=== PATIENT | female | born 1970 | race Caucasian/White ===

== ENCOUNTER 2018-07-22 08:31 | Day surgery (SDC) | payer BC, SELFPAY ==
[2018-07-22] VITALS (9 sets, daily range): BP systolic 102–140; BP diastolic 56–97; PULSE 57–81; RESP 12–16; TEMP 35.5–36.3; O2SAT 97–100
--- NOTE | 2018-07-22 06:49 | W.PM.OP ---
Date of service: 07/22/18 Operative Note DATE OF PROCEDURE: 07/22/18 PRE-OP DIAGNOSIS: Incisional hernia POST-OP DIAGNOSIS: same PROCEDURE: Laparoscopic incisional hernia repair with mesh (51.3 cm mesh) hernia size 12 x 13 cm SURGEON: Rubi Rogers ANESTHESIA: GETA (Clarisse Ryder CRNA) and regional (Bilateral rectus block done by Clarisse Ryder CRNA) ESTIMATED BLOOD LOSS: 25 PATHOLOGY: none sent COMPLICATIONS: None Patient was transported to: PACU Patient's condition: stable Implants: ECHO mesh 15.3 cm Indications: Mrs. Epps is a pleasant 48-year-old female who was seen in the office with an incisional hernia. She states it has probably been there about 6 years. It bothers her and causes her to have pain. She also does not like the way it looks with her clothing on. Risks, benefits and complications of a laparoscopic hernia repair were reviewed with her. She wished to proceed. No guarantees were given or implied. Findings: 12 x 13 hernia defect just to the left of midline. There was some scar tissue from the omentum no bowel within the hernia itself. Procedure Description: After informed consent was obtained the patient was taken to the operating room and placed in a supine position. SCDs were applied and she was sedated and intubated. Her abdomen was then prepped by anesthesia and they performed a bilateral rectus muscle block under anesthesia per my request for postoperative pain control. Once this was done a Ramirez was placed in a standard sterile fashion. Her abdomen was then prepped and draped in a sterile surgical fashion. A timeout was done and the patient's name, date of , procedure type and site, allergies to medications, antibiotic given, and DVT prophylaxis were all reviewed. At this 0.2% lidocaine was injected about 2 inches above the umbilicus and a 5 mm incision was made with an 11 blade. The skin was grasped with sharp towel clamps and pulled up at the same time a 5 mm Visiport was attempted to be placed. Her fascia gave way and I did not feel that I should push any more as I could injure something. The port was removed and the incision was made slightly larger the fascia was identified and grasped with [place]'s and using curved Metzenbaum scissors the fast fascia was opened. A 5 mm port was then gently inserted and the abdomen was insufflated. Once the abdomen was insulated a 10 mm port was placed in the left flank area and a 5 mm port was placed in the right flank area. Both were placed under direct visualization. The abdominal wall was inspected and the hernia was identified there was some omentum and scar tissue attached to the hernia this was dissected using a harmonic scalpel. Once all the adhesions were taken down the hernia defect was measured at 12 x 13 cm. A 15.3 echo mesh was opened onto the field. The mesh was placed into the abdomen through the 11 mm port site. A small puncture wound was made in the middle of the hernia defect and a Aiden Villela instrument was placed through that little catheter was graft of the echo mesh pulled through the opening and the balloon was inflated flattening out the mesh nicely. The 11 mm port had to be removed as the mesh was covering it. A new 11 mm port was placed in the LUQ and a 5 mm port was placed in the RLQ to allow for the tacks to be placed circumferential. The mesh was then tacked circumstantially with dissolvable tacks. The balloon was then deflated removed from the mesh and pulled out through the 11 mm port site. The bowel underneath the hernia defect was inspected and no injuries were noted no bleeding was identified from the scar tissue that had been dissected. The mesh was flat against the abdominal wall with good coverage of the hernia defect. All the port sites were removed and the abdomen was deflated. The 11 mm port site was closed with 0 Vicryl UR 6 suture. The dermis was re-approximated with 4-0 vicryl running suture. The skin was cleaned and dried. Mastasol and steri strips were applied. The incisions were covered with 2x2 and tegaderm. The instrument, needle and sponge count was correct x 2. The patient was woken up, extubated and taken back to PACU in stable condition.
--- NOTE | 2018-07-22 06:50 | W.PM.DSUDISC ---
Discharge Plan Disposition Patient Disposition: HOME Condition: Good Discharge Details Reason For Visit: Incisional hernia Attending Provider: Rubi Rogers Primary Care Provider: Nat Jaquez Home Meds and New Rx's Prescriptions: Continue oxycodone 5 mg capsule 5 mg PO ONCE RF: 0 acetaminophen [Tylenol] 325 MG tablet 325 mg PO PRN RF: 0 ibuprofen 200 mg Capsule 400 mg PO PRN PRNRF: 0 Discharge Instructions Instructions: Laparoscopic Herniorrhaphy (DC) Additional Instructions: General Surgery Discharge Information Discharge Activities: 1. Ambulate at least 3 times a day for 15 minutes and as tolerated 2. Out of bed at least 3 times a day for 2 hours at a time, and as tolerated 3. You can shower, pat wounds dry, do not rub Restrictions: 1. No heavy lifting over 20 pounds for 2 weeks, no strenuous bending or twisting. 2. No swimming, baths, or immersion of wounds in water for 1 week. Other 1. May use ice over the incisions for pain and bruising 2. Right shoulder pain and RUQ pain are common after laparoscopic surgery. This should resolve in 24 to 48 hours Medications: 1. Tylenol 650 mg every 6 hours as needed 2. Ibuprofen 600 mg every 6 hours as needed 3. Miralax or Colace daily as needed for constipation 4. Oxycodon 5 mg every 6 hours as needed for severe pain Follow-up appointments: Dr. Rogers in 2 weeks on [] at []. His office is located in the upper level of the [employer] [facility] across the street from the [facility].~ The office number is [phone]. For any questions or to make, confirm appointments. If you are having fever, chills, nausea, vomiting, pain not controlled with pain medications, bleeding or drainage from your wounds. Call [phone] or [phone] (after hours). 1. Because there will be medication in your system for the next 24 hours, you may feel a little sleepy. Your coordination will be affected. Therefore: a. Do not drive or operate dangerous equipment for 24 hours. b. Do not drink alcohol beverages for 24 hours (not even beer). c. Plan to go home and rest for the day. 2. Generally the only restriction on your activity is no lifting, pulling or pushing more then 20 lb for 4 weeks. You may feel fatigued for 2-4 weeks. 3 After you arrive home you may have a light meal and return to a normal diet as you can tolerate it without feeling sick to your stomach. 4. After surgery, you may feel pain or discomfort. Take the medications as prescribed. 5. If there are any questions regarding the findings of your procedure, please feel free to contact your doctor. 6. If you are unable to contact your doctor with a problem, contact the hospital at [phone]. 7. Continue all your regular medications unless directed otherwise. 8. You are being prescribed a Narcotic pain medication. Narcotic pain medications have an addiction potential for everyone. It is important that you take the medication as prescribed There is a limit on how many tablets we can prescribed, this has been decided by the state Please keep the medications in a secure place and do not let anyone know you have them at home If you have medication left over please discard them by crushing them in a little water and mixing in used coffee grounds or cat litter and putting in the trash. I understand the above instructions and have no questions. Signature of Patient or Responsible Adult Escort Date/Time Name of Responsible Adult Escort Signature of Nurse Date/Time I understand the above instructions and have no questions. Signature of Patient or Responsible Adult Escort Date/Time Name of Responsible Adult Escort Sugnature of Nurse Date/Time Activity:: No lifting >20 lb for 2 weeks Diet:: As Tolerated DS: Diagnosis Discharge Diagnosis (1) Incisional hernia of anterior abdominal wall without obstruction or gangrene: Status: Chronic
--- NOTE | 2018-07-22 06:55 | PDOC.DSDIS_ITS ---
Discharge Plan Disposition Patient Disposition: HOME Condition: Good Discharge Details Reason For Visit: Incisional hernia Attending Provider: Rubi Rogers Primary Care Provider: Nat Jaquez Home Meds and New Rx's Prescriptions: Continue oxycodone 5 mg capsule 5 mg PO ONCE RF: 0 acetaminophen [Tylenol] 325 MG tablet 325 mg PO PRN RF: 0 ibuprofen 200 mg Capsule 400 mg PO PRN PRNRF: 0 Discharge Instructions Instructions: Laparoscopic Herniorrhaphy (DC) Additional Instructions: General Surgery Discharge Information Discharge Activities: 1. Ambulate at least 3 times a day for 15 minutes and as tolerated 2. Out of bed at least 3 times a day for 2 hours at a time, and as tolerated 3. You can shower, pat wounds dry, do not rub Restrictions: 1. No heavy lifting over 20 pounds for 2 weeks, no strenuous bending or twisting. 2. No swimming, baths, or immersion of wounds in water for 1 week. Other 1. May use ice over the incisions for pain and bruising 2. Right shoulder pain and RUQ pain are common after laparoscopic surgery. This should resolve in 24 to 48 hours Medications: 1. Tylenol 650 mg every 6 hours as needed 2. Ibuprofen 600 mg every 6 hours as needed 3. Miralax or Colace daily as needed for constipation 4. Oxycodon 5 mg every 6 hours as needed for severe pain Follow-up appointments: Dr. Rogers in 2 weeks on [] at []. His office is located in the upper level of the [employer] Building across the street from the [facility].~ The office number is [phone]. For any questions or to make, confirm appointments. If you are having fever, chills, nausea, vomiting, pain not controlled with pain medications, bleeding or drainage from your wounds. Call [phone] or [phone] (after hours). 1. Because there will be medication in your system for the next 24 hours, you may feel a little sleepy. Your coordination will be affected. Therefore: a. Do not drive or operate dangerous equipment for 24 hours. b. Do not drink alcohol beverages for 24 hours (not even beer). c. Plan to go home and rest for the day. 2. Generally the only restriction on your activity is no lifting, pulling or pushing more then 20 lb for 4 weeks. You may feel fatigued for 2-4 weeks. 3 After you arrive home you may have a light meal and return to a normal diet as you can tolerate it without feeling sick to your stomach. 4. After surgery, you may feel pain or discomfort. Take the medications as prescribed. 5. If there are any questions regarding the findings of your procedure, please feel free to contact your doctor. 6. If you are unable to contact your doctor with a problem, contact the hospital at [phone]. 7. Continue all your regular medications unless directed otherwise. 8. You are being prescribed a Narcotic pain medication. Narcotic pain medications have an addiction potential for everyone. It is important that you take the medication as prescribed There is a limit on how many tablets we can prescribed, this has been decided by the state Please keep the medications in a secure place and do not let anyone know you have them at home If you have medication left over please discard them by crushing them in a little water and mixing in used coffee grounds or cat litter and putting in the trash. I understand the above instructions and have no questions. Signature of Patient or Responsible Adult Escort Date/Time Name of Responsible Adult Escort Signature of Nurse Date/Time I understand the above instructions and have no questions. _ Signature of Patient or Responsible Adult Escort Date/Time _ Name of Responsible Adult Escort _ Sugnature of Nurse Date/Time Activity:: No lifting >20 lb for 2 weeks Diet:: As Tolerated DS: Diagnosis Discharge Diagnosis (1) Incisional hernia of anterior abdominal wall without obstruction or gangrene : Status: Chronic
[2018-07-22] MEDS: Lactated Ringers 1,000 ML 80 ML IV ×2 (09:11→12:15)
[2018-07-22] MEDS: Bupivacaine 0.25% Pres-Free 30 ML VIAL (09:52)
[2018-07-22] MEDS: AMPICILLIN/SULBACTAM 3 GM in Normal Saline 100 ML IVPB (10:01)
[2018-07-22] MEDS: Lidocaine 2% Pres-Free 5 ML VIAL (10:16)
[2018-07-22] MEDS: Normal Saline Flush 10 ML SYR IV (12:10)
[2018-07-22] MEDS: HYDROmorphone 2 MG/ML VIAL IVP ×2 (12:10→12:24)
[2018-07-22] MEDS: oxyCODONE 5 MG TAB PO (13:21)
== END 2018-07-22 14:20 | disposition home or self-care (01) ==
PROVIDERS: PCP Physician Assistant Medical; Visit Provider Surgery
PROC: 0WQF4ZZ Repair Abdominal Wall, Percutaneous Endoscopic Approach (ICD-10-PCS; CPT 49654; principal; 2018-07-22 10:15)
DX: K43.2 Incisional hernia without obstruction or gangrene (principal)
CPT/HCPCS: 49654; 76942; C1781; J0131; J0295; J1100; J1885; J2250; J2405

== ENCOUNTER 2018-07-27 23:18 | Emergency (ER) | payer BC, SELFPAY ==
[2018-07-27] VITALS (10 sets, daily range): BP systolic 110–133; BP diastolic 60–94; PULSE 90–122; RESP 12–31; TEMP 36.6; O2SAT 94–98
--- NOTE | 2018-07-27 00:20 | DI.CT_ITS ---
SYMPTOMS/DIAGNOSIS: ABDOMINAL PAIN, LOWER, 5 DAYS S/P INCISIONAL HERNIA REPAIR ; PAIN AND VOMITING; SYNCOPE CT EXAMINATION OF THE ABDOMEN AND PELVIS: The study was carried out with an intravenous administration of 100 cc of Omnipaque 350. Minimal dependent atelectasis is demonstrated. The liver, and gallbladder, and pancreas and spleen are normal. The adrenals are normal. A 6 mm calculus is noted in the distal left ureter, causing severe hydronephrosis. No bowel abnormality or obstruction is identified. There is nothing to suggest an acute appendix. There is mild wall thickening of the urinary bladder. The reproductive organs as visualized are unremarkable. There is no evidence of free air or free fluid in the intraperitoneal space. No acute bony abnormality is seen. An anterior abdominal wall fluid collection in the subcutaneous fatty tissues measures 3 x 6 cm, midline abdomen along the inferior portion of the mesh. There is no evidence of an aortic aneurysm. The lymph nodes are unremarkable. SUMMARY: A 6 mm stone is impacted in the distal left ureter, causing moderate to severe hydronephrosis. There is bladder wall thickening, which could represent cystitis, and thickening of the ureteral wall on the left could be related to infection or secondary to obstruction. Note is also made of an anterior abdominal wall seroma.
[2018-07-27] MEDS: Lactated Ringers 1,000 ML 1000 ML IV (23:46)
[2018-07-27 23:55] LABS: Abs Immature Grans 0.05 k/cumm (0.0-0.09); Absolute Basophil Count 0.04 k/cumm (0.0-0.2); Absolute Lymphocyte Count 0.57 k/cumm (1.2-3.4); Basophils % 0.2; Eosinophils % 0.2; HCT 43.3 % (36.0-46.0); HGB 14.6 g/dL (12.0-15.5); Immature Grans % 0.3; Lymphocytes % 2.9; Mean Corp. HGB Concentration 33.7 g/dL (32.0-36.0); Mean Corpuscular Hemoglobin 30.4 pg (27.0-33.0); Mean Corpuscular Volume 90.2 fL (80-95); Mean Platelet Volume 9.6 fL (8.0-11.0); Monocytes % 6.6; Neutrophils % 89.8; Platelet Count 286 x1000/uL (130-400); RBC Distribution Width 12.9 % (11.7-14.6); White Blood Cell Count 19.51 k/cumm (4.4-10.8)
[2018-07-27 23:56] LABS: Absolute Eosinophil Count 0.04 k/cumm (0.0-0.7); Absolute Monocyte Count 1.29 k/cumm (0.11-0.7); Absolute Neutrophil Count 17.52 k/cumm (1.2-6.7)
[2018-07-27] MEDS: Ondansetron 4 MG/2 ML VIAL IVP (23:56)
[2018-07-28] VITALS (24 sets, daily range): BP systolic 105–120; BP diastolic 37–58; PULSE 96–110; RESP 11–19; TEMP 36.8; O2SAT 92–99
--- NOTE | 2018-07-28 00:14 | W.ED.GENAD ---
Discharge Plan Discharge Details Chief Complaint: Dizzy/Sync Primary Care Provider: Nat Jaquez ED Provider: Marty Reynoso Home Meds and New Rx's Prescriptions: No Action oxycodone 5 mg capsule 10 mg PO PRN PRNRF: 0 acetaminophen [Tylenol] 325 MG tablet 325 mg PO PRN RF: 0 ibuprofen 200 mg Capsule 400 mg PO PRN PRNRF: 0 Discharge Data Discharge Date/Time-TO BE ENTERED AT DEPARTURE: 07/28/18 03:15 Medical Decision Making 12:00 --48-year-old female here 5 days status post abdominal incisional hernia repair with nausea, vomiting, syncope x2 after vomiting spells, and lower abdominal pain and tenderness today. Plan to CT abdomen and pelvis to assess for acute surgical process. Consider abscess versus mesh failure. Patient appears clinically dehydrated. Plan to give IV fluid bolus. I will give her antiemetic. ECG reviewed and interpreted by me: Sinus rhythm 95 bpm, normal axis, no STEMI, no signs of Brugada, no signs of hocum, no delta wave, nondiagnostic. 1:00 -- Labs reviewed: leukocytosis noted. ddimer elevated. This was sent as screening protocol for syncope. Patient has no SOB. No chest pain. No leg swelling or calf tenderness. No hypoxia or resp distress. I think PE is unlikely and ddimer likely elevated secondary to inflammatory process. That being said, she did have 2 syncopal episodes and has been tachycardic with ambulation. Will CT chest. CT of the abdomen pelvis interpreted by radiology:IMPRESSION: 1. 6 mm stone in the distal left ureter causes moderate to severe hydronephrosis. 2. urinary bladder wall thickening may represent cystitis.. Ureteral urothelial thickening on the left could be infectious or secondary to the obstruction. 3. Anterior abdominal wall seroma. Of note, patient had remote iatrogenic left ureteral injury and has intermittent renal stones on left. Consider septic stone. Awaiting UA. 1:15 -- UA +nitrite and 10-20 WBCs. Concern for septic stone. Will start ceftriaxone 1g IV. 1:25 -- I spoke with Dr. Montes (urology) who notes no availability for procedure today or tomorrow and recommends transfer. I called [facility] to request transfer. CT imaging sent for review. 2:02 -- Spoke with Dr. Boudreaux ([facility] uro) who will accept the patient in transfer. Agrees with ceftriaxone and no additional abx needed. 2:55 --CT of the chest interpreted by radiology: No pulmonary embolism, dependent atelectasis. HPI General Mode of arrival: ambulatory. Date/Time Provider Initiated Documentation: 07/27/18 23:21. Limitations to Documentation: no limitations. Information obtained by: patient. HPI Narrative: 48-year-old female presents 5 days status post laparoscopic incisional hernia repair with mesh, with chief complaint of abdominal discomfort. Patient notes that surgery was performed without complication and she has been doing well over the past few days. This morning she started to have some increasing abdominal pain in her lower abdomen. Pain has persisted and worsened today. Around noon she developed nausea. Nausea is also worsened. She vomited twice this evening. After each episode of vomiting she had a syncopal episode and fell to the ground. The first episode occurred in her bathroom and the second episode occurred outside. She did land on a trash can after the second episode and notes that she may have injured her abdomen. She did hit her face. She denies headache. She has mild pain around her facial abrasions but does not believe she significantly injured her face or head. No neck pain. Patient has never had similar syncopal episode. Abdominal pain is severe. Localized to lower abdomen. Pain feels sharp. No modifiers. No associated fever. Related Data Home Medications Medication Instructions Recorded Confirmed acetaminophen [Tylenol] 325 mg PO PRN 06/20/14 07/27/18 oxycodone 5 mg capsule 10 mg PO PRN PRN 06/14/18 07/27/18 ibuprofen 400 mg PO PRN PRN 07/20/18 07/27/18 Allergies Allergy/AdvReac Type Severity Reaction Status Date / Time meloxicam AdvReac Intermediate diarrhea Verified 07/27/18 23:28 ibuprofen AdvReac Mild Other (See Verified 07/27/18 23:28 Comment) meperidine HCl [From Demerol] AdvReac Mild Nausea Unverified 07/27/18 23:28 General Stated Complaint: Dizzy/Sync JESÚS: 2 Review of Systems Review of Systems All systems reviewed & are unremarkable except as noted in HPI and below Cardiovascular Reports syncope, Denies leg edema and Denies dyspnea Respiratory Denies cough and Denies dyspnea Gastrointestinal Reports nausea and Reports vomiting Neurologic Reports syncope [facility] Family History Mother Myocardial infarction Lung cancer Medical History Carpal tunnel syndrome (Acute) Fibromyalgia (Acute) Gastritis (Acute) Herpes zoster (Acute) Hyperglycemia (Acute) Panic disorder (Acute) Anemia (Chronic) Social History Smoking/Tobacco Use Status: Never alcohol intake: current alcohol intake frequency: a few times a month substance use type: does not use Surgical History section Oophrectomy, Left (~1994) uretal implantation Exam Const General: cooperative and no acute distress HENMT Head: normocephalic, abrasion left temporal (superficial), no Rowland's sign, no hematomas, no palpable skull fracture, no raccoon eyes and No periorbital ecchymosis Mouth: moist mucous membranes Eyes Conjunctivae: normal conjunctivae Sclera: normal sclerae EOM: EOM intact bilaterally Neck Neck: trachea midline and supple Resp Auscultation: clear to auscultation bilaterally, no rales, no rhonchi and no wheezes Cardio Jugular venous pressure: no JVD Rate: regular rate and not tachycardic Rhythm: regular rhythm Heart Sounds: murmur systolic (patient notes told had murmur in past) II/ GI Inspection: abdominal wall ecchymosis (about incision sites), non-distended and no visible herniation Palpation: soft, not firm, no guarding, no masses, not rigid and tender (lower abdomen left>right) Skin General skin exam: no rashes or lesions noted Neuro General: alert, awake, oriented x3 and tone normal Cranial Nerves: CN's II-XI intact bilaterally Cognition: normal cognition Speech: speech normal Motor: muscle tone normal throughout and strength 5/5 throughout Sensory Exam: no sensory deficits noted Extrem General: no edema Psych Appearance: grossly normal Mental Status: mental status grossly normal Speech and Movement: speech and movement normal Course Vital Signs Temperature 36.6 C 07/27/18 23:24 Pulse 97 H 07/27/18 23:24 Respiratory Rate 14 07/27/18 23:24 Blood Pressure 129/62 07/27/18 23:24 Pulse Oximetry 97 07/27/18 23:24 Temperature 36.6 C 07/27/18 23:24 Temperature Source Skin 07/27/18 23:24 Pulse 99 H 07/27/18 23:52 Respiratory Rate 14 07/27/18 23:24 Respiratory Effort 07/27/18 23:36 Respiratory Depth Normal 07/27/18 23:36 Respiratory Pattern Normal 07/27/18 23:36 Blood Pressure 110/60 07/27/18 23:52 Pulse Oximetry 97 07/27/18 23:24 Oxygen Delivery Method Room Air 07/27/18 23:24 Oxygen Flow Rate 0 07/27/18 23:24 Pain Level 10 07/27/18 23:24 Lab/Test Results Lab/Test Results: Laboratory Tests Range/Units 07/27/18 23:30 WBC (4.4-10.8) k/cumm 19.51 H RBC (4.00-5.20) m/cumm 4.80 Hgb (12.0-15.5) g/dL 14.6 Hct (36.0-46.0) % 43.3 MCV (80-95) fL 90.2 MCH (27.0-33.0) pg 30.4 MCHC (32.0-36.0) g/dL 33.7 RDW (11.7-14.6) % 12.9 Plt Count (130-400) x1000/uL 286 MPV (8.0-11.0) fL 9.6 Immature Gran % 0.3 Neutrophils % 89.8 Lymphocytes % 2.9 Monocytes % 6.6 Eosinophils % 0.2 Basophils % 0.2 Absolute Neutrophils (1.2-6.7) k/cumm 17.52 H Absolute Lymphocytes (1.2-3.4) k/cumm 0.57 L Absolute Monocytes (0.11-0.7) k/cumm 1.29 H Absolute Eosinophils (0.0-0.7) k/cumm 0.04 Absolute Basophils (0.0-0.2) k/cumm 0.04
[2018-07-28 00:18] LABS: ALT 24 U/L (12-78); AST 15 U/L (15-37); Albumin 3.7 g/dL (3.4-5.0); Alkaline Phosphatase 94 U/L (46-116); Anion Gap 7.9 mmol/L (3-11); BUN 22 mg/dL (7-18); Bilirubin, Total 0.5 mg/dL (0.2-1.0); CO2 31.1 mmol/L (21.0-32.0); Calcium 9.2 mg/dL (8.5-10.1); Chloride 98 mmol/L (98-107); Estimated GFR 53.24 (mL/min/1.73m2); Glucose 137 mg/dL (70-100); Magnesium 1.7 mg/dL (1.8-2.4); Potassium 4.1 mmol/L (3.5-5.1); Sodium 137 mmol/L (136-145); Total Protein 7.5 g/dL (6.4-8.2)
[2018-07-28 00:27] LABS: D-Dimer 701 ng/mlFEU (<500)
--- NOTE | 2018-07-28 00:28 | ED.GENADUL_ITS ---
Discharge Plan Discharge Details Chief Complaint: Dizzy/Sync Primary Care Provider: Nat Jaquez ED Provider: Marty Reynoso Home Meds and New Rx's Prescriptions: No Action oxycodone 5 mg capsule 10 mg PO PRN PRNRF: 0 acetaminophen [Tylenol] 325 MG tablet 325 mg PO PRN RF: 0 ibuprofen 200 mg Capsule 400 mg PO PRN PRNRF: 0 Discharge Data Discharge Date/Time-TO BE ENTERED AT DEPARTURE: 07/28/18 03:15 Medical Decision Making 12:00 --48-year-old female here 5 days status post abdominal incisional hernia repair with nausea, vomiting, syncope x2 after vomiting spells, and lower abdominal pain and tenderness today. Plan to CT abdomen and pelvis to assess for acute surgical process. Consider abscess versus mesh failure. Patient appears clinically dehydrated. Plan to give IV fluid bolus. I will give her antiemetic. ECG reviewed and interpreted by me: Sinus rhythm 95 bpm, normal axis, no STEMI, no signs of Brugada, no signs of hocum, no delta wave, nondiagnostic. 1:00 -- Labs reviewed: leukocytosis noted. ddimer elevated. This was sent as screening protocol for syncope. Patient has no SOB. No chest pain. No leg swelling or calf tenderness. No hypoxia or resp distress. I think PE is unlikely and ddimer likely elevated secondary to inflammatory process. That being said, she did have 2 syncopal episodes and has been tachycardic with ambulation. Will CT chest. CT of the abdomen pelvis interpreted by radiology:IMPRESSION: 1. 6 mm stone in the distal left ureter causes moderate to severe hydronephrosis. 2. urinary bladder wall thickening may represent cystitis.. Ureteral urothelial thickening on the left could be infectious or secondary to the obstruction. 3. Anterior abdominal wall seroma. Of note, patient had remote iatrogenic left ureteral injury and has intermittent renal stones on left. Consider septic stone. Awaiting UA. 1:15 -- UA +nitrite and 10-20 WBCs. Concern for septic stone. Will start ceftriaxone 1g IV. 1:25 -- I spoke with Dr. Montes (urology) who notes no availability for procedure today or tomorrow and recommends transfer. I called [facility] to request transfer. CT imaging sent for review. 2:02 -- Spoke with Dr. Boudreaux ([facility] uro) who will accept the patient in transfer. Agrees with ceftriaxone and no additional abx needed. 2:55 --CT of the chest interpreted by radiology: No pulmonary embolism, dependent atelectasis. HPI General Mode of arrival: ambulatory . Date/Time Provider Initiated Documentation: 07/27/18 23:21 . Limitations to Documentation: no limitations . Information obtained by: patient . HPI Narrative: 48-year-old female presents 5 days status post laparoscopic incisional hernia repair with mesh, with chief complaint of abdominal discomfort. Patient notes that surgery was performed without complication and she has been doing well over the past few days. This morning she started to have some increasing abdominal pain in her lower abdomen. Pain has persisted and worsened today. Around noon she developed nausea. Nausea is also worsened. She vomited twice this evening. After each episode of vomiting she had a syncopal episode and fell to the ground. The first episode occurred in her bathroom and the second episode occurred outside. She did land on a trash can after the second episode and notes that she may have injured her abdomen. She did hit her face. She denies headache. She has mild pain around her facial abrasions but does not believe she significantly injured her face or head. No neck pain. Patient has never had similar syncopal episode. Abdominal pain is severe. Localized to lower abdomen. Pain feels sharp. No modifiers. No associated fever. Related Data Home Medications Medication Instructions Recorded Confirmed acetaminophen [Tylenol] 325 mg PO PRN 06/20/14 07/27/18 oxycodone 5 mg capsule 10 mg PO PRN PRN 06/14/18 07/27/18 ibuprofen 400 mg PO PRN PRN 07/20/18 07/27/18 Allergies Allergy/AdvReac Type Severity Reaction Status Date / Time meloxicam AdvReac Intermediate diarrhea Verified 07/27/18 23:28 ibuprofen AdvReac Mild Other (See Verified 07/27/18 23:28 Comment) meperidine HCl [From Demerol] AdvReac Mild Nausea Unverified 07/27/18 23:28 General Stated Complaint: Dizzy/Sync JESÚS: 2 Review of Systems Review of Systems All systems reviewed & are unremarkable except as noted in HPI and below Cardiovascular Reports syncope, Denies leg edema and Denies dyspnea Respiratory Denies cough and Denies dyspnea Gastrointestinal Reports nausea and Reports vomiting Neurologic Reports syncope [facility] Family History Mother Myocardial infarction Lung cancer Medical History Carpal tunnel syndrome (Acute) Fibromyalgia (Acute) Gastritis (Acute) Herpes zoster (Acute) Hyperglycemia (Acute) Panic disorder (Acute) Anemia (Chronic) Social History Smoking/Tobacco Use Status: Never alcohol intake: current alcohol intake frequency: a few times a month substance use type: does not use Surgical History section Oophrectomy, Left (~1994) uretal implantation Exam Const General: cooperative and no acute distress HENMT Head: normocephalic, abrasion left temporal (superficial), no Rowland's sign, no hematomas, no palpable skull fracture, no raccoon eyes and No periorbital ecchymosis Mouth: moist mucous membranes Eyes Conjunctivae: normal conjunctivae Sclera: normal sclerae EOM: EOM intact bilaterally Neck Neck: trachea midline and supple Resp Auscultation: clear to auscultation bilaterally, no rales, no rhonchi and no wheezes Cardio Jugular venous pressure: no JVD Rate: regular rate and not tachycardic Rhythm: regular rhythm Heart Sounds: murmur systolic (patient notes told had murmur in past) II/ GI Inspection: abdominal wall ecchymosis (about incision sites), non-distended and no visible herniation Palpation: soft, not firm, no guarding, no masses, not rigid and tender (lower abdomen left>right) Skin General skin exam: no rashes or lesions noted Neuro General: alert, awake, oriented x3 and tone normal Cranial Nerves: CN's II-XI intact bilaterally Cognition: normal cognition Speech: speech normal Motor: muscle tone normal throughout and strength 5/5 throughout Sensory Exam: no sensory deficits noted Extrem General: no edema Psych Appearance: grossly normal Mental Status: mental status grossly normal Speech and Movement: speech and movement normal Course Vital Signs Temperature 36.6 C 07/27/18 23:24 Pulse 97 H 07/27/18 23:24 Respiratory Rate 14 07/27/18 23:24 Blood Pressure 129/62 07/27/18 23:24 Pulse Oximetry 97 07/27/18 23:24 Temperature 36.6 C 07/27/18 23:24 Temperature Source Skin 07/27/18 23:24 Pulse 99 H 07/27/18 23:52 Respiratory Rate 14 07/27/18 23:24 Respiratory Effort 07/27/18 23:36 Respiratory Depth Normal 07/27/18 23:36 Respiratory Pattern Normal 07/27/18 23:36 Blood Pressure 110/60 07/27/18 23:52 Pulse Oximetry 97 07/27/18 23:24 Oxygen Delivery Method Room Air 07/27/18 23:24 Oxygen Flow Rate 0 07/27/18 23:24 Pain Level 10 07/27/18 23:24 Lab/Test Results Lab/Test Results: Laboratory Tests Range/Units 07/27/18 23:30 WBC (4.4-10.8) k/cumm 19.51 H RBC (4.00-5.20) m/cumm 4.80 Hgb (12.0-15.5) g/dL 14.6 Hct (36.0-46.0) % 43.3 MCV (80-95) fL 90.2 MCH (27.0-33.0) pg 30.4 MCHC (32.0-36.0) g/dL 33.7 RDW (11.7-14.6) % 12.9 Plt Count (130-400) x1000/uL 286 MPV (8.0-11.0) fL 9.6 Immature Gran % 0.3 Neutrophils % 89.8 Lymphocytes % 2.9 Monocytes % 6.6 Eosinophils % 0.2 Basophils % 0.2 Absolute Neutrophils (1.2-6.7) k/cumm 17.52 H Absolute Lymphocytes (1.2-3.4) k/cumm 0.57 L Absolute Monocytes (0.11-0.7) k/cumm 1.29 H Absolute Eosinophils (0.0-0.7) k/cumm 0.04 Absolute Basophils (0.0-0.2) k/cumm 0.04
[2018-07-28] MEDS: Omnipaque 350 MG/ML 100 ML BTL IJ ×2 (00:35→02:43)
--- NOTE | 2018-07-28 00:41 | DI.VRAD_ITS ---
EXAM: CT Abdomen and Pelvis With Intravenous Contrast EXAM DATE/TIME: 07/27/2018 11:49 PM CLINICAL HISTORY: 48 years old, female; Pain; Abdominal pain; Localized; Lower; Prior surgery; Surgery date: 3-7 days post-operative; Surgery type: Incisional hernia repair 07/22/18, HX of 2 c-sections and repair of ureter after removing l ovary; Patient HX: Abdominal pain, vomiting and syncope TECHNIQUE: Axial computed tomography images of the abdomen and pelvis with intravenous contrast. All CT scans at this facility use at least one of these dose optimization techniques: automated exposure control; mA and/or kV adjustment per patient size (includes targeted exams where dose is matched to clinical indication); or iterative reconstruction. Coronal and sagittal reformatted images were created and reviewed. CONTRAST: 100 ml of Omnipaque 350 administered intravenously. COMPARISON: CT ABD/PELVIS WO W CONTRAST 07/03/2014 8:27 AM FINDINGS: Lower thorax: Minimal dependent atelectasis. ABDOMEN: Liver: Normal. No mass. Gallbladder and bile ducts: Normal. No calcified stones. No ductal dilation. Pancreas: Normal. No ductal dilation. Spleen: Normal. No splenomegaly. Adrenals: Normal. No mass. Kidneys and ureters: 6 mm stone distal left ureter causing severe hydronephrosis. Stomach and bowel: Normal. No obstruction. No mucosal thickening. Appendix: No evidence of appendicitis. PELVIS: Bladder: Mild wall thickening of the urinary bladder. Reproductive: Unremarkable as visualized. ABDOMEN and PELVIS: Intraperitoneal space: Normal. No free air. No significant fluid collection. Bones/joints: No acute fracture. No dislocation. Soft tissues: Anterior abdominal wall fluid collection in the subcutaneous fatty tissues measures approximately 3 x 6 cm it is in the lower midline abdomen along the inferior are of the mesh. Vasculature: Normal. No abdominal aortic aneurysm. Lymph nodes: Normal. No enlarged lymph nodes. IMPRESSION: 1. 6 mm stone in the distal left ureter causes moderate to severe hydronephrosis. 2. urinary bladder wall thickening may represent cystitis.. Ureteral urothelial thickening on the left could be infectious or secondary to the obstruction. 3. Anterior abdominal wall seroma. Dictated and Authenticated by: Chapito Mercer MD. Ordering:JENNIFER BOLANOS MD
[2018-07-28 00:42] LABS: Troponin I < 0.02 ng/mL (0.00-0.06)
[2018-07-28 01:02] LABS: Bilirubin Negative (Negative); Blood Moderate (Negative); Glucose Negative (Negative); Ketones Negative (Negative); Leukocyte Esterase Small (Negative); Nitrite Positive (Negative); Urobilinogen 0.2 EU/dL (Up TO 0.2)
[2018-07-28 01:09] LABS: Clarity Sl Cloudy
[2018-07-28 01:10] LABS: Epithelial Cells Rare HPF (Negative)
[2018-07-28 01:11] LABS: Bacteria Rare HPF (Negative); C & S Indicated? Yes; Casts Negative LPF (Negative); Crystals Negative HPF (Negative); Mucus Negative (Negative)
[2018-07-28 01:40] LABS: Lactate-non-spesis 1.9 mmol/L (0.6-1.4)
[2018-07-28] MEDS: HYDROmorphone 2 MG/ML VIAL 0.5 MG IVP (01:40)
--- NOTE | 2018-07-28 02:30 | DI.CT_ITS ---
SYMPTOMS/DIAGNOSIS: ELEVATED D-DIMER, SYNCOPE PE CT: CT angiography was performed with multi slice acquisition and multi planar and 3D reconstruction. The study was carried out according to the usual protocol with an intravenous injection of 82 cc of Omnipaque 350 (the patient has had an injection of 100 cc of Omnipaque [address] examination of the abdomen and pelvis. The study was okayed by Dr. Reynoso, amount of Omnipaque 350 of up to 182 cc). There is no evidence of pulmonary embolic disease. There is no evidence of an aortic aneurysm or aortic dissection. Note is made of a small amount of dependent atelectasis, nil else.
--- NOTE | 2018-07-28 02:49 | DI.VRAD_ITS ---
EXAM: CT Angiography Chest With Intravenous Contrast EXAM DATE/TIME: 07/28/2018 1:18 AM CLINICAL HISTORY: 48 years old, female; Signs and symptoms; Other: Syncope and elevated d dimer; Prior surgery; Surgery date: 3-7 days post-operative; Surgery type: 07/22/18 hernia repair TECHNIQUE: Axial computed tomographic angiography images of the chest with intravenous contrast using CT angiography protocol. All CT scans at this facility use at least one of these dose optimization techniques: automated exposure control; mA and/or kV adjustment per patient size (includes targeted exams where dose is matched to clinical indication); or iterative reconstruction. Coronal and sagittal reformatted images were created and reviewed. MIP reconstructed images were created and reviewed. CONTRAST: 82 ml of Omnipaque 350 administered intravenously. COMPARISON: No relevant prior studies available. FINDINGS: Pulmonary arteries: Normal. No pulmonary emboli. Aorta: Normal. No aortic aneurysm. No aortic dissection. Lungs: Small amount of dependent atelectasis. Pleural space: Normal. No pneumothorax. No pleural effusion. Heart: Normal. No cardiomegaly. No pericardial effusion. Bones/joints: Unremarkable. No acute fracture. Soft tissues: Unremarkable. Lymph nodes: Unremarkable. No enlarged lymph nodes. IMPRESSION: Small amount of dependent atelectasis. Dictated and Authenticated by: Chapito Mercer MD. Ordering:JENNIFER BOLANOS MD
== END 2018-07-28 03:15 ==
LOC: ER 07-28 00:43
PROVIDERS: Emergency Provider Student in an Organized Health Care Education/Training Program; PCP Physician Assistant Medical
DX: N13.39 Other hydronephrosis (principal); B96.20 Unspecified Escherichia coli [E. coli] as the cause of diseases classified elsewhere
CPT/HCPCS: 36415; 71275; 80053; 86850; 86900; 86901; 87077; 93005; 96361; 96365; 96375; 99285; 74177; 81003; 81015; 83605; 83735; 84484; 85025; 85379; 87086; 87186; 93010; J0696; J2405; J3490

== ENCOUNTER 2018-09-10 01:02 | Outpatient (CLI) | payer BC, SELFPAY ==
--- NOTE | 2018-09-10 12:30 | DI.CT_ITS ---
SYMPTOM/DIAGNOSIS: S/P HERNIA REPAIR, FELL, NEW ABD WALL MASS, R22.2, SWELLING, PAIN ABDOMEN AND PELVIC CT: Comparison is made with 07/27/18 and 07/03/14. Images were performed from the lung bases through the ischial tuberosities after IV and oral contrast. A marker was placed over the left lower abdominal wall in the area of the patient's pain and swelling. A seroma was seen in this location on the previous exam. There has been some interval increase in size of the previously noted seroma, now measuring 5 cm. transverse by 4.3 cm. AP by 5 cm. cephalocaudad. There are no findings to suggest inflammation. The previously noted stone at the distal left ureter is no longer seen. The patient is status post reconstruction of the right ureter with reimplantation at the superior portion of the bladder many years ago. There is some wall thickening in this area which may be post surgical. Some air is now seen within the bladder. There is mild to moderate left hydronephrosis which appears improved when compared with the previous exam but appears greater when compared with the 2014 exam. There is a non obstructing stone at the lower pole of the right kidney. There is some left renal scarring and parenchymal thinning. The lung bases are clear. The liver, gallbladder, spleen, pancreas and adrenals are unremarkable. The appendix, small and large bowel are unremarkable. The uterus and ovaries are within normal limits. There is no free air. IMPRESSION: Interval increase in size of previously noted seroma in the anterior inferior left abdominal wall. The previously noted left distal ureteral stone is no longer present. There has been left ureteral reimplantation and there is residual wall thickening. There is moderate left hydronephrosis, improved when compared with the previous exam.
[2018-09-10] MEDS: Omnipaque 350 MG/ML 100 ML BTL IJ (12:37)
[2018-09-10] MEDS: Breeza Beverage 473 ML BTL PO ×2 (12:37→12:38)
[2018-09-10] MEDS: Omnipaque 350 MG/ML 50 ML BTL PO (12:38)
== END 2018-09-10 01:22 ==
PROVIDERS: PCP Physician Assistant Medical; Visit Provider Surgery
DX: L76.34 Postprocedural seroma of skin and subcutaneous tissue following other procedure (principal); R22.2 Localized swelling, mass and lump, trunk; N13.30 Unspecified hydronephrosis; R10.9 Unspecified abdominal pain
CPT/HCPCS: 74177; J3490; Q9967

== ENCOUNTER 2019-09-14 00:59 | Outpatient (CLI) | payer BC, SELFPAY ==
--- NOTE | 2019-09-14 08:25 | DI.CT_ITS ---
EXAM: CT ABDOMEN PELVIS WO/W CLINICAL HISTORY: ? hernia recurrence vs left kidney problem,abd pain, llq pain,r10.32 TECHNIQUE: Oral contrast was administered prior to the exam. Images were performed from the lung ba ses through the ischial tuberosities before and after 100 cc's of Omnipaque 350. COMPARISON: CT ABDOMEN PELVIS W from 09/10/2018 FINDINGS: There has been marked interval improvement in the previously noted seroma in the anterior abdominal wall, now measuring 2 cm in diameter. There is no evidence of a new abnormality. There has been a p revious anterior abdominal wall repair. Nonobstructing stone is again noted at the lower pole of the right kidney. There is no change in the mild right and moderate left hydronephrosis. The left uret er is again noted to be reimplanted at the superolateral aspect of the left side of the bladder. The re is again noted to be mild mural enhancement of the left ureter. No ureteral or bladder calculi ar e seen. There is symmetric renal perfusion. Heart size is normal. The lung bases are clear. The liver, gallbladder, spleen, pancreas and adrena ls are unremarkable. The uterus and ovaries are also unremarkable. The appendix is normal. There is no bowel dilatation or inflammatory change. IMPRESSION: Marked interval improvement of lower anterior abdominal wall seroma. Stable nonobstructing stone at the lower pole of the left kidney. There is stable appearance of the bilateral hydronephrosis, left greater than right. No new abnormalities are seen.
[2019-09-14] MEDS: Omnipaque 350 MG/ML 100 ML BTL IJ (08:37)
[2019-09-14] MEDS: Breeza Beverage 473 ML BTL PO (08:38)
== END 2019-09-14 01:19 ==
PROVIDERS: PCP Physician Assistant Medical; Visit Provider Surgery
DX: R10.32 Left lower quadrant pain (principal); L76.34 Postprocedural seroma of skin and subcutaneous tissue following other procedure; N20.0 Calculus of kidney; N13.30 Unspecified hydronephrosis
CPT/HCPCS: 74178; J3490

== ENCOUNTER 2020-06-18 00:24 | Outpatient (CLI) | payer BC, SELFPAY ==
--- NOTE | 2020-06-18 | DI.US_ITS ---
EXAM: US RENAL CLINICAL HISTORY: KIDNEY STONES, N20.0. TECHNIQUE: Guevara scale, color and spectral Doppler were used. COMPARISON: No exams were available for comparison FINDINGS: Renal size in cm: Right: 12.0. Left: 0.8. Echogenicity: Normal. Hydronephrosis: Moderate left hydronephrosis. Cyst or mass: No. Nephrolithiasis: Tiny non-obstructing calculi in the right kidney. The largest measures 2 mm. Other findings: None. Bladder:Normal. Ureteral jets: Right: Visualized and unremarkable. Left: Visualized and unremarkable. Prevoid vol:158 cc Postvoid vol:0 cc Renal color flow: Symmetric and within normal limits. IMPRESSION: 1. Moderate left hydronephrosis. 2. Nonobstructing right nephrolithiasis. DATA REPOSITORY:
== END 2020-06-18 00:44 ==
PROVIDERS: PCP Physician Assistant Medical; Visit Provider Urology
DX: N20.0 Calculus of kidney (principal); N13.30 Unspecified hydronephrosis
CPT/HCPCS: 76770

== ENCOUNTER 2022-06-24 17:13 | Outpatient (REF) | payer BC, SELFPAY ==
--- NOTE | 2022-06-24 14:10 | ENDO_PTH ---
PATIENT: Nery Epps LOC: [facility] U#:[id number] AGE/SX: 52/F ROOM: RE06/24/[address]: Jen Snell DO : 1970 BED: DIS: 06/24/2022 SPEC #: [id number] RECD: 06/24/22 17:41 STATUS: CHERI REQ #: [id number] MANDI: 06/24/22 14:[address]: Jen Snell DEPT: Surgical Specimen RECD BY: Pat Ray ENTERED: 06/24/22 17:42 SP TYPE: Endo OTHR DR: Nat Jaquez Tissues: 1 - ENDOCERVICAL BX/CURRETTE Procedures: GROSS AND MICRO LEVEL 4 Comments: [id number]
== END 2022-06-24 17:14 | disposition home or self-care (01) ==
LOC: LBN 17:13
PROVIDERS: PCP Physician Assistant Medical; Visit Provider Obstetrics & Gynecology
DX: Z87.42 Personal history of other diseases of the female genital tract (principal)
CPT/HCPCS: 88305

== ENCOUNTER 2022-12-23 10:40 | Outpatient (CLI) | payer BC, SELFPAY ==
--- NOTE | 2022-12-23 14:15 | DI.RAD_ITS ---
Exam(s) XR FOOT LT COMPLETE EXAM: XR FOOT LT COMPLETE CLINICAL HISTORY: bilateral foot pain, Achilles bursitis, Bunion, M76.60, M79.673, M21.619. TECHNIQUE: 2D digital imaging was performed of the left foot. Three images were obtained. AP, obli que and lateral views were obtained. COMPARISON: No exams were available for comparison FINDINGS: BONES: No acute fracture is present. No bony destructive lesion is seen. There is a small plantar ramírez caneal spur. There is a large enthesophyte at the posterior calcaneus. JOINTS: No dislocation present. Mild degenerative changes are seen in the foot with joint space narro wing and bony hypertrophy. The findings are most identified at the 1st MTP and interphalangeal joint s of the toes. SOFT TISSUE: Normal. IMPRESSION: Mild degenerative changes of the foot. DATA REPOSITORY: RADIATION DOSE DELIVERED:
--- NOTE | 2022-12-23 14:15 | DI.RAD_ITS ---
Exam(s) XR FOOT RT COMPLETE EXAM: XR FOOT RT COMPLETE CLINICAL HISTORY: bilateral foot pain, Achilles bursitis, Bunion, M76.60, M79.673, M21.619. TECHNIQUE: 2D digital imaging was performed of the right foot. Three images were obtained. AP, obl ique and lateral views were obtained. COMPARISON: No exams were available for comparison FINDINGS: BONES: No acute fracture is present. No bony destructive lesion is seen. There is a small plantar ramírez caneal spur. There is a large enthesophyte at the posterior calcaneus. JOINTS: No dislocation present. Degenerative changes are seen in the foot with joint space narrowing and periarticular spurring present. Findings are most marked at the 1st metatarsophalangeal joint an d the interphalangeal joints of the toes. SOFT TISSUE: Normal. IMPRESSION: 1. Mild degenerative changes of the right foot. 2. Large enthesophyte at the posterior calcaneus. DATA REPOSITORY: RADIATION DOSE DELIVERED:
== END 2022-12-23 11:00 ==
LOC: DI 05-26 10:41
PROVIDERS: PCP Physician Assistant Medical; Visit Provider Podiatrist Foot & Ankle Surgery
DX: M19.072 Primary osteoarthritis, left ankle and foot; M19.071 Primary osteoarthritis, right ankle and foot; M77.31 Calcaneal spur, right foot; M76.61 Achilles tendinitis, right leg
CPT/HCPCS: 73630

== ENCOUNTER 2023-01-03 14:05 | Emergency (ER) | payer BC, SELFPAY ==
[2023-01-03 14:37] VITALS: BP 151/82; PULSE 90; RESP 15; TEMP 36.7; O2SAT 98
--- NOTE | 2023-01-03 15:00 | DI.CT_ITS ---
Exam(s) CT RENAL COLIC WO EXAM: CT RENAL COLIC WO CLINICAL HISTORY: left flank pain. TECHNIQUE: Imaging Protocol: Axial computed tomography images with coronal and sagittal reformatted images were created and reviewed. COMPARISON: CT CT ABDOMEN PELVIS WO/W from 09/14/2019 FINDINGS: ABDOMEN: Lung Bases: Normal where visualized. Liver: Normal density. No measurable mass. Gallbladder and biliary tract: No radiodense calculus or biliary ductal dilation. Pancreas: Normal density, no abnormal calcifications or inflammatory process. Spleen: Normal. Kidneys: Normal size, contour and axis.There is a 9 mm nonobstructing stone in the lower pole of the right kidney. There is dilatation of the left renal collecting system. It is slightly more dilated compared to 09/14/2019. Right renal collecting system appears within normal limits. No ureteral sto anne are seen. No masses seen. Adrenal glands: No mass is seen. Lymph nodes: There are mildly enlarged left retroperitoneal lymph nodes and mesenteric lymph nodes. The largest is to the left of the aorta and measures 1.3 x 1 cm. Abdominal Aorta: Abdominal portion non-dilated. Atherosclerosis. PELVIS: Bladder:Symmetric distention, no gross wall thickening. Bowel: There is diverticulosis seen in the colon, but no evidence of acute diverticulitis. There is no evidence of bowel obstruction or bowel wall thickening. Appendix is unremarkable. Peritoneal cavity: No ascites, collection or mesenteric inflammatory response. No free air. Reproductive organs: Unremarkable as visualized. Bones: Within normal limits. Soft Tissues: Within normal limits. IMPRESSION: 1. Right nephrolithiasis. No evidence of hydronephrosis. 2. Slight worsening of the dilatation of the left renal collecting system. Findings could represent a recently passed stone, a noncalcified stone, clot or soft tissue process in the left ureter. An in fectious/inflammatory process should also be considered. RADIATION DOSE DELIVERED: 1,529.91mGy.cm Total DLP DATA REPOSITORY: All CT scans at this facility are submitted to the National Radiology Data Registry (NRDR) Dose Index Registry (DIR) with the [employer] (ACR). RADIATION OPTIMIZATION: All CT scans at this facility use at least one of these dose optimization te chniques: automated exposure control; mA and/or kV adjustment per patient size (includes targeted exa ms where dose is matched to clinical indication); or iterative reconstruction.
--- NOTE | 2023-01-03 15:02 | ED.GENADUL_ITS ---
Discharge Plan Disposition Patient Disposition: Home Condition: Stable Discharge Details Clinical Impression: Flank pain, UTI (urinary tract infection) Primary Care Provider: Nat Jaquez ED Provider: Cameron Le Home Meds and New Rx's Prescriptions: New ciprofloxacin HCl 500 mg tablet 500 mg PO BID Qty: 14 0RF Continued acetaminophen [Tylenol] 325 MG tablet 325 mg PO PRN ibuprofen 200 mg Capsule 400 mg PO PRN PRN Discharge Instructions Instructions: Urinary Tract Infection in Women (ED) Additional Instructions: you do not have an obstructing kidney stone at this time follow up with your primary care provider or urologist within 1 week especially if symptoms continue if you feel more ill, have severe worsening pain or persistent vomiting return to the emergency department Medical Decision Making 52 yo female with hx of prior kidney stones comes in with cc or left lower back/flank pain starting around 3am and has had red urine per patient. She denies fevers, chills, vomiting. She arrives stable caox4 in no distress. She localizes the pain to the left lower back/oblique. She has no abdominal tenderness, no cva tenderness. Given her history concern for possible stone vs pyelo, will obtain cbc, cmp, ua and ct renal colic to further evaluate ua suspicious for uti, ct shows no obstructing stone, has bilateral hydro left greater then right which she's had chronically when reviewed on prior ct in 2019. She is stable, feels well. Will treat with cipro and have her f/u with her pcp, return precautions given Differential Diagnosis Differential Diagnosis: kidney stone, pyelo, musculoskeletal pain Medical Records Medical records reviewed: Yes I reviewed the patient's medical records. Lab Data Lab results reviewed: Yes I reviewed the patient's lab results. HPI General Mode of arrival: ambulatory . Date/Time Provider Initiated Documentation: 01/03/23 14:15 . Limitations to Documentation: no limitations . Information obtained by: patient . History of Present Illness 52 year old F presents to the emergency department with the chief complaint of left flank pain, described as moderate, Quality is described as stabbing and aching, Patient started experiencing this hour(s) (12) and it has been constant. No relieving factors improve symptom(s), No exacerbating factors reported . Patient notes denies fever/chills. Patient did receive the following treatments prior to arrival, none Related Data Home Medications Medication Instructions Recorded Confirmed acetaminophen 325 mg tablet 325 mg PO PRN 06/20/14 01/03/23 (Tylenol) ibuprofen 200 mg capsule 400 mg PO PRN PRN 07/20/18 01/03/23 ciprofloxacin HCl 500 mg tablet 500 mg PO BID #14 tabs 01/03/23 Previous Rx's Medication Instructions Recorded ciprofloxacin HCl 500 mg tablet 500 mg PO BID #14 tabs 01/03/23 Allergies Allergy/AdvReac Type Severity Reaction Status Date / Time gabapentin Allergy Unknown Verified 12/23/22 13:50 oxycodone Allergy Unknown Verified 12/23/22 13:50 venlafaxine Allergy Unknown Verified 12/23/22 13:50 meloxicam AdvReac Intermediate diarrhea Verified 12/23/22 13:50 ibuprofen AdvReac Mild Other (See Verified 12/23/22 13:50 Comment) meperidine HCl [From Demerol] AdvReac Mild Nausea Unverified 12/23/22 13:50 General Stated Complaint: Urinary JESÚS: 3 Review of Systems All systems reviewed & are unremarkable except as noted in HPI and below Constitutional Constitutional: Denies chills, Denies fever(s) and Denies weakness Cardiovascular Cardiovascular: Denies chest pain and Denies dyspnea Respiratory Respiratory: Denies cough and Denies dyspnea Gastrointestinal Gastrointestinal: Denies abdominal pain and Denies vomiting Integumentary/Breasts Skin/Breast: Denies rash Neurologic Neurologic: Denies weakness PFSH All Active Problems (Updated 01/03/23 @ 16:24 by Cameron Le MD) Flank pain (Acute) UTI (urinary tract infection) (Acute) Bunion (Acute) Foot pain (Acute) Achilles bursitis (Acute) Therapeutic drug monitoring (Acute) Joint pain (Acute) Screening for colon cancer (Acute) Abdominal pain (Acute) Incisional hernia of anterior abdominal wall without obstruction or gangrene (Acute) Lichen sclerosus et atrophicus (Acute 03/14/13) Left flank pain (Acute 07/20/14) Hydronephrosis, left (Acute 07/20/14) Adjustment disorder with mixed anxiety and depressed mood (Acute 04/22/18) Incisional hernia of anterior abdominal wall without obstruction or gangrene (Chronic) Medical History (Updated 01/03/23 @ 16:24 by Cameron Le MD) Anemia Carpal tunnel syndrome Fibromyalgia Gastritis Herpes zoster Hyperglycemia Lateral epicondylitis Panic disorder Urinary stone Urinary tract infectious disease Surgical History (Updated 08/28/22 @ 06:41 by Silvia Dasilva RN) section X 2 1996, 1998 Oophrectomy, Left (~1994) with Cystectomy, L uretal damage during surgery S/P laparoscopic hernia repair (~07/22/18) uretal implantation Family History Mother Myocardial infarction Lung cancer Social History Smoking/Tobacco Use Status: Never Smoking risk assessment performed?: Yes Alcohol Intake: current Alcohol Intake frequency: holidays/special occasions only Drug use: Never Substance use type: does not use Do you feel safe at home: Yes Do you feel safe in your relationship?: Yes History History 3 Para 2 Hx # Term Pregnancies 2 Multiple births Hx # Pregnancies Ectopic pregnancies AB induced Hx Number of Living Children 2 AB spontaneous Exam Const General: no acute distress Orientation: alert HENMT Head: normal to inspection Ears: external ears normal General nose exam: external nose normal Mouth: moist mucous membranes Eyes General: appearance normal, both eyes and all related structures Neck Neck: normal visual inspection Resp Effort & Inspection: normal respiratory effort and able to speak in complete sentences Cardio Rate: regular rate GI Palpation: soft and nontender Back/Spine/Pelvis Back: no CVA tenderness Skin General skin exam: no rashes or lesions noted Neuro General: patient alert and patient oriented x3 Extrem General: normal to inspection Psych Mental Status: mental status grossly normal Course Vital Signs Vital signs: Vital Signs Temperature 36.7 C 01/03/23 14:37 Pulse 90 01/03/23 14:37 Respiratory Rate 15 01/03/23 14:37 Blood Pressure 151/82 H 01/03/23 14:37 Pulse Oximetry 98 01/03/23 14:37 Temperature 36.7 C 01/03/23 14:37 Temperature Source Oral 01/03/23 14:37 Pulse 90 01/03/23 14:37 Respiratory Rate 15 01/03/23 14:37 Blood Pressure 151/82 H 01/03/23 14:37 Blood Pressure Position Sitting 01/03/23 14:37 Pulse Oximetry 98 01/03/23 14:37 Oxygen Delivery Method Room Air 01/03/23 14:37 Oxygen Flow Rate 0 01/03/23 14:37 Pain Level 5 01/03/23 14:37
[2023-01-03 15:16] LABS: Source Nasal/Nares
[2023-01-03 15:21] LABS: Abs Immature Grans 0.03 10^3/uL (0.0-0.06); Absolute Eosinophil Count 0.12 10^3/uL (0.0-0.7); Absolute Lymphocyte Count 1.35 10^3/uL (1.2-3.4); Eosinophils % 1.2; HCT 41.6 % (36.0-46.0); HGB 13.6 g/dL (11.2-15.7); Immature Grans % 0.3; Lymphocytes % 13.1; MCH 27.6 pg (27.0-33.0); MCHC 32.7 % (32.0-36.0); MCV 85 fL (80-95); MPV 9.7 fL (8.0-11.0); Monocytes % 8.7; Neutrophils % 75.7; Platelet Count 287 10^3/uL (130-400); RBC 4.92 10^6/uL (3.93-5.22); RDW 13.5 % (11.7-14.6); RDW-SD 42.1 fL
[2023-01-03 15:36] LABS: ALT 20 U/L (14-59); AST 11 U/L (15-37); Albumin 3.9 g/dL (3.4-5.0); Alkaline Phosphatase 101 U/L (46-116); Anion Gap 7.4 mmol/L (3-11); BUN 15 mg/dL (7-18); Bilirubin, Total 0.3 mg/dL (0.2-1.0); CO2 29.6 mmol/L (21.0-32.0); CREATININE 0.8 mg/dL (0.55-1.02); Calcium 9.3 mg/dL (8.5-10.1); Chloride 101 mmol/L (98-107); Estimated GFR 89.15 (mL/min/1.73m2); Glucose 103 mg/dL (74-106); Lipase 31 U/L (16-77); Magnesium 1.9 mg/dL (1.8-2.4); Potassium 3.9 mmol/L (3.5-5.1); Sodium 138 mmol/L (136-145); Total Protein 7.7 g/dL (6.4-8.2)
[2023-01-03 15:41] LABS: Bilirubin Negative (Negative); Blood Large (Negative); Clarity Sl Cloudy (Clear); Glucose Negative (Negative); Ketones Negative (Negative); Leukocyte Esterase Large (Negative); Nitrite Negative (Negative); Urobilinogen 0.2 mg/dL (Up to 0.2)
[2023-01-03] MEDS: Normal Saline 1,000 ML 1000 ML IV (15:42)
[2023-01-03 15:45] LABS: Bacteria Few HPF (Negative); C & S Indicated? No; Casts Negative LPF (Negative); Crystals Negative HPF (Negative); Epithelial Cells Many HPF (Negative); Mucus Negative (Negative); WBC 20-50 HPF (0-5)
[2023-01-03 15:51] LABS: COVID-19 PCR Negative (Negative)
--- NOTE | 2023-01-03 16:14 | DI.VRAD_ITS ---
PROCEDURE INFORMATION: Exam: CT Abdomen And Pelvis Without Contrast Exam date and time: 01/03/2023 3:39 PM Age: 52 years old Clinical indication: Abdominal pain; Patient HX: Left flank pain TECHNIQUE: Imaging protocol: Computed tomography of the abdomen and pelvis without contrast. COMPARISON: CT ABDOMEN PELVIS WO/W 09/14/2019 8:25 AM FINDINGS: Liver: Normal. No mass. Gallbladder and bile ducts: Normal. No calcified stones. No ductal dilation. Pancreas: Normal. No ductal dilation. Spleen: Normal. No splenomegaly. Adrenal glands: Normal. No mass. Kidneys and ureters: Nonobstructing right renal calculi. No ureteral calculus. Mild dilatation of the right collecting system 15 mm. Dilatation of the left collecting system 28 mm. 14 mm simple cyst lateral left kidney Stomach and bowel: Unremarkable. No obstruction. No mucosal thickening. Appendix: Normal appendix Intraperitoneal space: Mesh herniorrhaphy anteriorly in the midline with some adjacent inflammatory changes series 2, image [id number] No free air. No significant fluid collection. Vasculature: Unremarkable. No abdominal aortic aneurysm. Lymph nodes: Unremarkable. No enlarged lymph nodes. Urinary bladder: Unremarkable as visualized. Reproductive: Unremarkable as visualized. Bones/joints: Unremarkable. No acute fracture. Soft tissues: Unremarkable. IMPRESSION: Nonobstructing right renal calculi. No ureteral calculus. Mild dilatation of the right collecting system 15 mm. Dilatation of the left collecting system 28 mm. The findings could be due to a recently passed stone, a noncalcified stone or clot or soft tissue process in the left ureter, or an infectious/inflammatory process of the left collecting system collecting system. Dictated and Authenticated by: Kate Grubbs MD. Ordering:SAPPHIRE Barnes MD
[2023-01-03] MEDS: Ciprofloxacin 500 MG TAB PO (16:39)
[2023-01-03 16:44] VITALS: BP 132/71; PULSE 80; O2SAT 98
[2023-01-03 16:46] VITALS: BP 131/81; PULSE 85; O2SAT 99
[2023-01-03 16:47] VITALS: BP 131/81; PULSE 94; RESP 14; TEMP 36.6; O2SAT 98
[2023-01-03 16:51] VITALS: BP 131/81; PULSE 94; RESP 14; TEMP 36.6; O2SAT 98
--- NOTE | 2023-01-05 08:41 | NUR.NOTE ---
Nursing Note:Accessed chart to look up whether or not on antibiotic.
== END 2023-01-03 16:51 | disposition home or self-care (01) ==
PROVIDERS: Emergency Provider Emergency Medicine; PCP Physician Assistant Medical
DX: N39.0 Urinary tract infection, site not specified (principal); Z20.822 Contact with and (suspected) exposure to COVID-19
CPT/HCPCS: 80053; 81025; 83690; 87635; 96360; 99284; 74176; 81003; 81015; 83735; 85025; 87086

== ENCOUNTER 2023-04-13 03:05 | Outpatient (CLI) | payer BC, SELFPAY ==
--- NOTE | 2023-04-13 06:45 | DI.MAMMO_ITS ---
Exam(s) MAMMO SCREENING EXAM: MAMMO SCREENING CLINICAL HISTORY: screening,Z12.39 TECHNIQUE: Mammograms were interpreted according to the usual protocol including computer analysis w ith CAD system, tomosynthesis and C-view imaging. COMPARISON: SCREENING ANETA MAMMO W/CAD DIGI from 03/21/2013 FINDINGS: The breasts are composed of scattered fibroglandular densities, Breast Density category B. No suspicious masses or suspicious microcalcifications are seen. No skin thickening or abnormal axillary lymph nodes are seen. There has been no significant change from prior exams. IMPRESSION: BI-RADS Category 1, Negative mammogram Yearly screening mammography is recommended. Breast Density - Category B, scattered fibroglandular densities. A negative radiographic report should not delay biopsy if a dominant or clinically suspicious mass is present. Up to ten percent of cancers are not identified on mammography. A negative report may reinforce clinical impression. Adenosis and dense breasts may obscure an underlying neoplasm. False positive reports average 6 to 10%. Patient will receive a letter notifying them of these results.
== END 2023-04-13 03:25 ==
LOC: DI 03:08
PROVIDERS: PCP Physician Assistant Medical; Visit Provider Obstetrics & Gynecology Gynecology
DX: Z12.31 Encounter for screening mammogram for malignant neoplasm of breast (principal)
CPT/HCPCS: 77063; 77067

== ENCOUNTER 2023-05-01 06:07 | Day surgery (SDC) | payer BC, SELFPAY ==
--- NOTE | 2023-04-30 20:31 | PDOC.DSDIS_ITS ---
Date of service: 05/01/23 Time of Service: 08:04 Discharge Plan Disposition Patient Disposition: Home Condition: Good Discharge Details Reason For Visit: colon scope Attending Provider: Olya Monroe Primary Care Provider: Nat Jaquez Home Meds and New Rx's Prescriptions: Continued celecoxib [Celebrex] 200 mg capsule 200 mg PO BID Qty: 60 0RF acetaminophen [Tylenol] 325 MG tablet 325 mg PO PRN ibuprofen 200 mg Capsule 400 mg PO PRN PRN Discontinued bisacodyl [Dulcolax (bisacodyl)] 5 mg tablet,delayed release (DR/EC) 5 mg PO ONCE Qty: 4 0RF Rx Instructions: Take per colonoscopy instructions provided by ordering providers office polyethylene glycol 3350 17 gram/dose powder 17 g PO ONCE Qty: 238 0RF Rx Instructions: Take per colonoscopy instructions provided by ordering providers office No Action cetirizine [Zyrtec] 10 mg Tablet 10 mg PO PRN PRN Discharge Instructions Additional Instructions: DSU Colonoscopy Post- Op Instructions Instructions for Everyone who is given Anesthesia: For your safety, please do the following for the next twenty-four (24) hours: *Do Not operate a motor vehicle (car, truck, motorcycle, etc.) *Do Not drink alcoholic beverages or use any recreational drugs for the first 24 hours or while taking pain medications. The medications in your body may have a reaction that can be dangerous. *Do Not make any important decisions or sign any important papers. Findings: Normal external hemorrhoids Follow up: Repeat in 10 years time 1. No lifting over 20 pounds or strenuous activity for the first 24 hours after your procedure. After 24 hours there are no restrictions on your activity but you may feel fatigued for a few days. 2. After you arrive home you may have a light meal and return to your normal diet as you can tolerate it without feeling sick to your stomach. 3. You may have a bloated, gaseous feeling in your belly (abdomen) after a colonoscopy. Passing gas and belching will help. Walking or lying down on your left side with your knees flexed may relieve the discomfort. Call the office at [phone] (Office) or [phone] (Hospital) right away if you notice any of the following: a.Vomiting of blood or ?coffee ground stools?. b.Rectal bleeding 1Tbsp, blood clots or continuous bleeding. c.Severe belly (abdominal) pain. d.A hard distended belly (abdomen) and an inability to pass gas. 4. Please don?t expect to have a normal BM (bowel movement) for 2-3 days after your procedure. 5. If there are questions regarding the findings of your procedure, please contact your doctor 6. If you are unable to contact your doctor with a problem, contact the hospital at [phone]. 7. Continue all your regular medications unless directed otherwise. I understand the above instructions and have no questions. Signature of Patient or Adult Escort Name of Responsible Adult Escort Signature of Nurse Date/Time Activity:: see above Diet:: see above Discharge Orders Discharge Orders: Discharge Order (Routine); Ordered 05/01/23 Ordered By: Olya Monroe DS: Diagnosis Discharge Diagnosis (1) LLQ pain: Status: Acute (2) Screening for colon cancer: Status: Acute Asessment and Plan: The patient is seen and examined after their colonoscopy.? The patient has been able to pass gas.? They are not having abdominal pain.? They have been able to tolerate liquids and a snack.? They do not have any nausea or vomiting.? They are not having any chest pain or shortness of breath.??? They are not having any rectal bleeding. Their vital signs have been stable-see nursing notes. We discussed findings during their colonoscopy, and any biopsies that were done/polyps that were removed. The patient will be sent a letter with any biopsy results, and when to repeat the colonoscopy.-see discharge instructions. Patient was given explicit instructions to follow-up regarding colonoscopy-refer to discharge instructions.? We reviewed resumption of medications. Patient verbalized understanding and discharged in stable and satisfactory condition- See nursing notes. (3) Abdominal pain: Status: Acute (4) Incisional hernia of anterior abdominal wall without obstruction or gangrene: Status: Acute (5) Fibromyalgia: (6) Panic disorder: (7) Adjustment disorder with mixed anxiety and depressed mood: Status: Acute (8) Incisional hernia of anterior abdominal wall without obstruction or gangrene: Status: Chronic
--- NOTE | 2023-04-30 20:36 | W.COLOREPORT ---
Date of service: 05/01/23 Time of Service: 08:06 Colonoscopy Report Date of procedure: 05/01/23 Pre-op diagnosis general: CRC screening Post-op diagnosis procedure note: other (External hemorrhoids) Surgeon: Olya Monroe Anesthesia Type: General:No Airway Estimated blood loss (mL): 0 Pathology: none sent Complications: None Disposition: same day Prep: Miralax/Dulcolax Retraction Time: 9 Procedure Description: After informed consent was obtained the patient was taken to the procedure room and placed in a left decubitous position. Monitors were applied and a time out was done. The patients name, date of , procedure, allergies to medications and metal in their body was reviewed. The patient was then sedated. Once sedated and comfortable a rectal exam was done. External exam was shows external hemorrhoids x1 with no inflammation or thrombosis. internal exam revealed a normal sphincter tone and no palpable masses. The scope was then introduced and retrofelexed. No internal hemorrhoids were identified. The scope was then advanced to the cecum difficulty. The TI and appendiceal orifice were identified. The prep was BBPS 3 in all segments for total of 9. The scope was then slowly retracted over 9 minutes back into the rectum. There are no polyps, AVMs, or diverticula visualized today. The Mucosa is pink and healthy with a normal vascular pattern. e scope was removed and the patient was woken up and taken back to Same day surgery in stable condition. The patient tolerated the procedure well and there were no immediate complications. Follow up: The patient should follow up in 10 years unless they develop changes in bowel habits or other new gastrointestinal complaints.
[2023-05-01 06:15] VITALS: BP 124/94; PULSE 91; RESP 18; TEMP 36; O2SAT 97
[2023-05-01] MEDS: Lactated Ringers 1,000 ML 80 ML IV (06:44)
--- NOTE | 2023-05-01 07:09 | ANES.PREOP_ITS ---
General Info Date of Service Date Performed: 05/01/23 Height: 5 ft 5 in Weight: 96.5 kg Body Mass Index (BMI): 35.4 Surgical Procedure: Operation Date: 05/01/23 07:35 Proposed Procedure Side Surgeon kirk Monroe, Meds Allergies and Home Medications Allergies Allergy/AdvReac Type Severity Reaction Status Date / Time gabapentin Allergy Unknown Verified 05/01/23 06:26 oxycodone Allergy Unknown Verified 05/01/23 06:26 venlafaxine Allergy Unknown Verified 05/01/23 06:26 meloxicam AdvReac Intermediate diarrhea Verified 05/01/23 06:26 ibuprofen AdvReac Mild Other (See Verified 05/01/23 06:26 Comment) meperidine HCl [From Demerol] AdvReac Mild Nausea Unverified 05/01/23 06:26 Home Medication Medication Instructions Recorded acetaminophen 325 mg tablet 325 mg PO PRN 06/20/14 (Tylenol) ibuprofen 200 mg capsule 400 mg PO PRN PRN 07/20/18 celecoxib 200 mg capsule (Celebrex) 200 mg PO BID #60 caps 03/24/23 cetirizine 10 mg tablet (Zyrtec) 10 mg PO PRN PRN 05/01/23 Current Visit Medications: Current Medications Generic Name Dose Route Start Last Admin Trade Name Freq PRN Reason Stop Dose Admin Hyoscyamine Sulfate 0.125 mg 05/01/23 01:01 Hyoscyamine 0.125 Mg Sl/Oral/Chew SL 05/31/23 01:00 DIRECTED PRN Ringer's Solution 1,000 mls @ 80 mls/hr 05/01/23 06:00 05/01/23 06:44 IV 05/01/23 23:59 80 mls/hr INFUSION THIERRY Administration IV Miscellaneous Supplies 1 each 05/01/23 06:00 Iv Access IV 05/01/23 23:59 DIRECTED THIERRY Ondansetron HCl 4 mg 05/01/23 01:01 Ondansetron 4 Mg/2 Ml Vial IVP 05/31/23 01:00 Q4H PRN PRN Nausea / Vomiting Sodium Chloride 0 ml 05/01/23 06:00 Normal Saline Flush 10 Ml Syr IV 05/01/23 23:59 PRN PRN Sodium Chloride 0 ml 05/01/23 06:00 Normal Saline 10 Ml Vial IJ 05/01/23 23:59 DIRECTED PRN Sterile Water 0 ml 05/01/23 06:00 Water,Injection,Sterile 10 Ml Vial IJ 05/01/23 23:59 DIRECTED PRN PFSH Active Problems Active Problems: Problem Status Onset Code LLQ pain R10.32 Bunion M21.619 Foot pain M79.673 Achilles bursitis M76.60 Therapeutic drug monitoring Z51.81 Joint pain M25.50 Screening for colon cancer Z12.11 Abdominal pain R10.9 Incisional hernia of anterior abdominal wall without obstruction or gangrene K43.2 Lichen sclerosus et atrophicus 03/14/13 L90.0 Left flank pain 07/20/14 R10.9 Hydronephrosis, left 07/20/14 N13.30 Adjustment disorder with mixed anxiety and depressed mood 04/22/18 F43.23 Incisional hernia of anterior abdominal wall without obstruction or gangrene K43.2 Medical History Medical History Anemia Carpal tunnel syndrome Fibromyalgia Gastritis Herpes zoster Hyperglycemia Lateral epicondylitis Panic disorder Urinary stone Urinary tract infectious disease Surgical History Surgical History section X 2 1996, 1998 Oophrectomy, Left (~1994) with Cystectomy, L uretal damage during surgery S/P laparoscopic hernia repair (~07/22/18) uretal implantation Tobacco Smoking/Tobacco Use Status: Never Alcohol Alcohol Intake: current Alcohol intake frequency: holidays/special occasions only Substance Use Substance use: Never Substance use type: does not use Details: alcohol t-3 edible marijuana t-7 Prental History History 3 Para 2 Hx # Term Pregnancies 2 Multiple births Hx # Pregnancies Ectopic pregnancies AB induced Hx Number of Living Children 2 AB spontaneous Vital Signs and Lab Results Vital Signs Most Recent Vital Signs in EMR: Most Recent Vital Signs Temp Pulse Resp BP Pulse Ox 36.0 C L 91 H 18 124/94 H 97 05/01/23 06:15 05/01/23 06:15 05/01/23 06:15 05/01/23 06:15 05/01/23 06:15 Lab Results Blood Type / Crossmatch: No Data to Display Complete Blood Count: No Data to Display Complete Metabolic Panel: No Data to Display Liver Function Panel: No Data to Display Coagulation Panel: No Data to Display Cardiac Panel: No Data to Display Arterial Blood Gas: No Data to Display Venous Blood Gas: 2 No Data to Display Pancreas Panel: No Data to Display Thyroid Panel: No Data to Display Infectious Disease: No Data to Display Blood Cultures: No Data to Display Toxicology Panel: No Data to Display Panel: No Data to Display Anesthesia Assessment and Plan Anesthesia History Personal History: No History of Anesthesia Complications Family History: No Family History of Anesthesia Complications Exercise Tolerance Exercise Tolerance: Metabolic Equivalents>4 Pertinent Negatives Pertinent Negatives: No Symptoms of GERD, No Major Cardiovascular Symptoms or Complaints and No Major Pulmonary Symptoms or Complaints Cardiac & Pulmonary Exam Cardiac Exam: Normal S1/S2 Heart Sounds Pulmonary Exam: Clear Bilateral Breath Sounds Implantable Cardiac Device Does patient have a Pacemaker or an ICD?: No Airway Exam Known Difficult Airway: No Mallampati Class: 1 Mouth Opening: Normal (> 3cm) Thyromental Distance: Greater than 3 cm Neck Range of Motion: Full ROM Neck Circumference: Normal Teeth Condition: Normal Dentition ASA Classification ASA Score: ASA 2 Emergency Case?: No NPO Status NPO Status: NPO Clears >2 hours, Solids >8 hours Status Status: Pt. refuses testing, she was counseled on anesthesia risks Anesthesia Plan Resuscitation Status: Full Code Anesthesia Technique: General Anesthesia Airway Planned: Natural Airway Monitors Used: Standard Monitors
[2023-05-01 07:13] VITALS: BMI 35.4
[2023-05-01 08:03] VITALS: BP 102/74; PULSE 82; RESP 15; TEMP 36.4; O2SAT 94
[2023-05-01 08:30] VITALS: BP 120/69; PULSE 90; RESP 16; TEMP 36.4; O2SAT 95
--- NOTE | 2023-05-01 08:43 | W.ANESPOSTOP ---
Postoperative Evaluation Date, Time and Location Date Performed: 05/01/23 Time Performed: 08:44 Patient Location: Day Surgery Unit Vital Signs Most Recent Imported Vital Signs: Most Recent Vital Signs Temp Pulse Resp BP Pulse Ox 36.4 C L 82 15 102/74 94 05/01/23 08:03 05/01/23 08:03 05/01/23 08:03 05/01/23 08:03 05/01/23 08:03 Pain Score Most Recent Pain Score: Most Recent Pain Score Pain Level 0 05/01/23 08:03 Assessment Mental Status: Awake (Alert & Oriented to Patient Baseline) Airway and Respiratory Function: Patent airway with normal (patient baseline) respiratory exam Cardiovascular Function: Hemodynamically Stable Hydration Status: Adequately Hydrated Nausea & Vomiting: No Nausea or Vomiting Pain: Pt. Denies Any Pain Peripheral Nerve Block: Patient did not receive a nerve block
== END 2023-05-01 08:45 | disposition home or self-care (01) ==
PROVIDERS: PCP Physician Assistant Medical; Visit Provider Surgery
PROC: 0DJD8ZZ Inspection of Lower Intestinal Tract, Via Natural or Artificial Opening Endoscopic (ICD-10-PCS; CPT 45378; principal; 2023-05-01 07:30)
DX: Z12.11 Encounter for screening for malignant neoplasm of colon; K64.4 Residual hemorrhoidal skin tags
CPT/HCPCS: 45378

== ENCOUNTER 2023-08-17 04:35 | Outpatient (CLI) | payer BC, SELFPAY ==
[2023-08-17 07:34] LABS: Calculated LDL 171 mg/dL (<100); Cholesterol 256 mg/dL (<200); HDL Cholesterol 65 mg/dL (40-60); Hemoglobin A1C 5.6 % (<5.7); Triglyceride 103 mg/dL (<150)
== END 2023-08-17 04:36 | disposition home or self-care (01) ==
LOC: LBO 04:35
PROVIDERS: PCP Nurse Practitioner; Referring Provider Nurse Practitioner; Visit Provider Nurse Practitioner
DX: E11.9 Type 2 diabetes mellitus without complications (principal); E66.9 Obesity, unspecified
CPT/HCPCS: 36415; 80061; 83036

== ENCOUNTER 2023-11-09 14:36 | Outpatient (REF) | payer BC, SELFPAY ==
--- NOTE | 2023-11-09 14:15 | PAPFT_PTH ---
PATIENT: Nery Epps LOC: [facility] U#:[id number] AGE/SX: 53/F ROOM: RE11/09/[address]: Kayla Yao MD : 1970 BED: DIS: 11/09/2023 SPEC #: [id number] RECD: 11/09/23 17:57 STATUS: CHERI PEARCE #: [id number] MANDI: 11/09/23 14:[address]: Kayla Yao DEPT: [facility] Cytology RECD BY: Pat Ray ENTERED: 11/09/23 17:57 SP TYPE: PAPFT ARA DR: Kendra Munoz APRN Tissues: 1 - CX/ENDOCX FOR PAP SMEARS Procedures: PAP THIN PREP/[facility] Screening HPV DNA PROBE Comments: [id number]
== END 2023-11-09 14:37 | disposition home or self-care (01) ==
LOC: LBN 14:36
PROVIDERS: PCP Nurse Practitioner; Visit Provider Obstetrics & Gynecology
DX: Z12.4 Encounter for screening for malignant neoplasm of cervix (principal); Z11.51 Encounter for screening for human papillomavirus (HPV)
CPT/HCPCS: 88142; 87624

== ENCOUNTER 2024-01-05 12:50 | Outpatient (REF) | payer BC, SELFPAY ==
--- NOTE | 2024-01-05 12:00 | SKI_PTH ---
PATIENT: Nery Epps LOC: [facility] U#:[id number] AGE/SX: 53/F ROOM: RE01/05/[address]: Antonio Parker MD : 1970 BED: DIS: 01/05/2024 SPEC #: [id number] RECD: 01/05/24 17:24 STATUS: CHERI REYusuf #: [id number] MANDI: 01/05/24 12:[address]: Antonio Parker DEPT: Surgical Specimen RECD BY: Pat Ray ENTERED: 01/05/24 17:25 SP TYPE: TAINA BULLOCK DR: Kendra Munoz APRN Tissues: 1 - SKIN BIOPSY(SHAVE/PUNCH) Procedures: SKIN LEVEL 4 Comments: [id number]
== END 2024-01-05 12:51 | disposition home or self-care (01) ==
LOC: LBN 12:50
PROVIDERS: PCP Nurse Practitioner; Visit Provider Otolaryngology
DX: C44.41 Basal cell carcinoma of skin of scalp and neck (principal); L98.8 Other specified disorders of the skin and subcutaneous tissue
CPT/HCPCS: 88305

== ENCOUNTER 2024-01-12 18:03 | Outpatient (REF) | payer BC, SELFPAY ==
--- NOTE | 2024-01-12 16:45 | SKI_PTH ---
PATIENT: Nery Epps LOC: [facility] U#:[id number] AGE/SX: 53/F ROOM: RE01/12/[address]: Antonio Parker MD : 1970 BED: DIS: 01/12/2024 SPEC #: [id number] RECD: 01/13/24 17:33 STATUS: CHERI REQ #: [id number] MANDI: 01/12/24 16:[address]: Antonio Parker DEPT: Surgical Specimen RECD BY: Pat Ray ENTERED: 01/13/24 17:34 SP TYPE: TIANA BULLOCK DR: Kendra Munoz APRN Tissues: 1 - SKIN BIOPSY(SHAVE/PUNCH) Procedures: SKIN LEVEL 4 Comments: [id number]
== END 2024-01-12 18:04 | disposition home or self-care (01) ==
LOC: NCHCN 18:03
PROVIDERS: PCP Nurse Practitioner; Visit Provider Otolaryngology
DX: C44.41 Basal cell carcinoma of skin of scalp and neck (principal)
CPT/HCPCS: 88305

== ENCOUNTER 2024-07-28 02:59 | Outpatient (CLI) | payer BC, SELFPAY ==
[2024-07-28 12:31] LABS: ESR 11 mm/hr (0-30)
[2024-07-28 12:58] LABS: C-Reactive Protein < 0.50 mg/dL (<or=0.5)
[2024-07-28 21:41] LABS: Rheumatoid Factor 54.7 IU/mL (<12.0)
[2024-07-29 08:44] LABS: Cyclic Citrullinated Peptide <2.5 U/mL (<5.0)
[2024-07-29 14:15] LABS: Lyme Ab w Rflx to Lyme Confirm Negative (Negative)
[2024-07-29 15:13] LABS: ANA Interpretation Negative (Negative)
[2024-07-31 16:47] LABS: Anaplasma phagocytophilum Negative (Negative); B. miyamotoi PCR Negative (Negative); Babesia divergens/MO-1 Negative (Negative); Babesia duncani Negative (Negative); Babesia microti Negative (Negative); Ehrlichia chaffeensis Negative (Negative); Ehrlichia ewingii/canis Negative (Negative); Ehrlichia muris eauclairensis Negative (Negative)
== END 2024-07-28 03:00 | disposition home or self-care (01) ==
PROVIDERS: PCP Nurse Practitioner; Visit Provider Nurse Practitioner
DX: M79.10 Myalgia, unspecified site; R53.83 Other fatigue
CPT/HCPCS: 36415; 85652; 86200; 87798; 84443; 86038; 86140; 86431; 86618

== ENCOUNTER 2024-11-22 16:04 | Outpatient (REF) | payer BC, SELFPAY | END 2024-11-22 16:05 | disposition home or self-care (01) | LOC: LBN 16:04 | PROVIDERS: PCP Nurse Practitioner Family; Visit Provider Nurse Practitioner Family | DX: R30.0 Dysuria (principal); E78.5 Hyperlipidemia, unspecified; E66.9 Obesity, unspecified; G47.33 Obstructive sleep apnea (adult) (pediatric) | CPT/HCPCS: 87077; 87086; 87186 ==

== ENCOUNTER 2024-12-27 00:51 | Outpatient (CLI) | payer BC, SELFPAY ==
--- NOTE | 2024-12-27 06:00 | DI.MAMMO_ITS ---
Exam(s) MAMMO SCREENING EXAM: MAMMO SCREENING CLINICAL HISTORY: screening,z12.39 TECHNIQUE: Bilateral full field digital CC and MLO mammographic images were obtained with 3D tomosyn thesis and utilizing computer aided detection (CAD). COMPARISON: Available for comparison. FINDINGS: Masses/Architectural Distortion: None seen. Microcalcifications: No suspicious pleomorphic-type are seen. Skin Thickening/Nipple Retraction: None. IMPRESSION: 1. No significant interval change with no specific features of malignancy noted. 2. Unless there is more urgent need, screening mammography is recommended, as per [employer] guidelines. BI-RADS Category 1 - Negative Breast Density - Category B - Scattered areas of fibroglandular density Breast density category C or D implies that the patient has dense breast tissue. Dense breast tissue is very common and is not abnormal but dense breast tissue can make it harder to find cancer on a ma mmogram. Also, dense breast tissue may increase their breast cancer risk. This information about the result of the mammogram report was provided to the patient to raise their awareness. Use this report when you speak with the patient about their risks for breast cancer, which includes their family hist ory. At that time, you may recommend for more screening tests (Ultrasound or MRI) as they might be us eful based on their risk. A negative radiographic report should not delay biopsy if a dominant or clinically suspicious mass is present. Up to ten percent of cancers are not identified on mammography. A negative report may reinforce clinical impression. Adenosis and dense breasts may obscure an underlying neoplasm. False positive reports average 6 to 10%. Patient will receive a letter notifying them of these results.
== END 2024-12-27 01:11 ==
LOC: DI 00:51
PROVIDERS: PCP Nurse Practitioner Family; Visit Provider Nurse Practitioner
DX: Z12.31 Encounter for screening mammogram for malignant neoplasm of breast (principal); R92.323 Mammographic fibroglandular density, bilateral breasts
CPT/HCPCS: 77063; 77067

== ENCOUNTER 2024-12-27 00:51 | Outpatient (CLI) | payer BC, SELFPAY ==
--- NOTE | 2024-12-27 08:10 | DI.RAD_ITS ---
Exam(s) XR ARTHRITIS SERIES EXAM: XR ARTHRITIS SERIES CLINICAL HISTORY: ARTHRAGLIA, ? BONY EROSIONS/CHONDROCALCINOSIS/INFLAMMATORY/DEGENERATIVE. TECHNIQUE: 2D digital imaging was performed. Two images were obtained. COMPARISON: No exams were available for comparison FINDINGS: BONES: No acute fracture is present. No bony destructive lesion is seen. JOINTS: No dislocation present. Mild degenerative changes are seen in the hands characterized by mauricio nt space narrowing and osteophytes in the interphalangeal joints. No erosions or soft tissue calcifi cations are present. SOFT TISSUE: Normal. IMPRESSION: Mild degenerative changes seen in the hands. DATA REPOSITORY: RADIATION DOSE DELIVERED:
--- NOTE | 2024-12-27 08:10 | DI.RAD_ITS ---
Exam(s) XR FOOT LT LIMITED EXAM: XR FOOT LT LIMITED CLINICAL HISTORY: ARTHRALGIA, ? BONY EROSIONS, ? CHRONDROCALCINOSIS, ? INFLAMMATORY,. TECHNIQUE: 2D digital imaging was performed of the left foot. Two images were obtained. AP and lat eral views were obtained. COMPARISON: CR XR FOOT LT COMPLETE from 12/23/2022 FINDINGS: BONES: No acute fracture is present. No bony destructive lesion is seen. There is a large enthesophyt e at the posterior calcaneus. There is a small plantar calcaneal spur. JOINTS: No dislocation present. Mild degenerative changes are seen in the interphalangeal joints of t he toes. No erosions or soft tissue calcifications are seen. SOFT TISSUE: Normal. IMPRESSION: Mild degenerative changes seen in the left foot. DATA REPOSITORY: RADIATION DOSE DELIVERED:
--- NOTE | 2024-12-27 08:10 | DI.RAD_ITS ---
Exam(s) XR FOOT RT LIMITED EXAM: XR FOOT RT LIMITED CLINICAL HISTORY: ARTHRALGIA, ? BONY EROSIONS/CHONDROCALCINOSIS/INFLAMMATORY/DEGERATIVE. TECHNIQUE: 2D digital imaging was performed of the right foot. Two images were obtained. AP, obliq ue and lateral views were obtained. COMPARISON: CR XR FOOT RT COMPLETE from 12/23/2022 FINDINGS: BONES: No acute fracture is present. No bony destructive lesion is seen. There is a bipartite medial sesamoid at the head of the 1st metatarsal. There is an enthesophyte at the posterior calcaneus. Th ere is a small plantar calcaneal spur. JOINTS: No dislocation present. Mild degenerative changes are seen characterized by joint space narro wing. The findings are seen in the interphalangeal joints of the toes in the 1st MTP joint. No eros ions or soft tissue calcifications are seen. SOFT TISSUE: Normal. IMPRESSION: Minimal degenerative arthritis. DATA REPOSITORY: RADIATION DOSE DELIVERED:
== END 2024-12-27 01:11 ==
LOC: DI 00:52
PROVIDERS: PCP Nurse Practitioner Family; Visit Provider Student in an Organized Health Care Education/Training Program
DX: M19.041 Primary osteoarthritis, right hand (principal); M19.042 Primary osteoarthritis, left hand; M19.072 Primary osteoarthritis, left ankle and foot
CPT/HCPCS: 73120; 73620

== ENCOUNTER 2025-01-19 02:13 | Outpatient (CLI) | payer BC, SELFPAY ==
[2025-01-19 08:19] LABS: ALT 22 U/L (14-59); AST 14 U/L (15-37); Albumin 3.9 g/dL (3.4-5.0); Alkaline Phosphatase 95 U/L (46-116); Anion Gap 8.3 mmol/L (3-11); BUN 18 mg/dL (7-18); Bilirubin, Total 0.4 mg/dL (0.2-1.0); CO2 29.7 mmol/L (21.0-32.0); Calcium 9.4 mg/dL (8.5-10.1); Chloride 105 mmol/L (98-107); Estimated GFR 67.36 (mL/min/1.73m2); Glucose 93 mg/dL (74-106); Potassium 4.5 mmol/L (3.5-5.1); Sodium 143 mmol/L (136-145); Total Protein 7.8 g/dL (6.4-8.2)
[2025-01-19 08:41] LABS: Calculated LDL 160 mg/dL (<100); Cholesterol 237 mg/dL (<200); HDL Cholesterol 58 mg/dL (>or=50); Triglyceride 99 mg/dL (<150)
== END 2025-01-19 02:14 | disposition home or self-care (01) ==
LOC: LBO 02:13
PROVIDERS: PCP Nurse Practitioner Family; Visit Provider Nurse Practitioner
DX: E78.5 Hyperlipidemia, unspecified (principal); R73.9 Hyperglycemia, unspecified
CPT/HCPCS: 36415; 80053; 80061